=== PATIENT | female | born 1950 | race Two or more races ===

== ENCOUNTER 2024-08-15 15:50 | Emergency (ER) | payer OTHER ==
[~2024-08-15] VITALS: Ht 154.9 cm; Wt 49.0 kg
--- NOTE | 2024-08-15 17:32 | DVH ---
Procedure: CT CT AB PEL WO CON-NO ORAL OR IV 08/15/2024 04:55 PM Indication: Fall/trauma Comparison Study: None available at time of dictation. Technique: Axial images were obtained and reformatted in coronal and sagittal planes. All CT scans at this medical facility are performed using dose modulation techniques as appropriate t o a performed exam including the following: Automated exposure control was utilized; adjustment of th e MA and/or KV according to patient size; and use of iterative reconstruction technique. CT Dose: CTDI volume is 5.07 mGy. Dose-length product is 249.58 mGy*cm FINDINGS: Lower Chest: Severe multi chamber cardiomegaly. Artificial cardiac valve is noted. Calcification of the left atrial wall is seen. Bibasilar interstitial edema. Hepatobiliary: Gallbladder is surgically absent. Spleen: Unremarkable. Pancreas: Unremarkable. Adrenal Glands: Unremarkable. tract: The kidneys are normal in size bilaterally without hydronephrosis or nephrolithiasis. A 2 c m left renal cyst is seen. Parenchymal scarring in the lateral aspect of upper pole of the right kid osman The urinary bladder is unremarkable. GI tract: The stomach is grossly normal in appearance. No evidence of small bowel obstruction. Scatte red colonic diverticula are noted without evidence of diverticulitis. The appendix is not visualized . No inflammatory change is noted in the right lower quadrant. Lymphatics: No mesenteric, retroperitoneal or periportal lymphadenopathy. Vasculature: The abdominal aorta is normal in caliber. Diffuse calcified plaque formation is noted. Pelvic Organs: Unremarkable Bones/soft tissues: No acute abnormality. Other: None. IMPRESSION: 1. No CT evidence of acute hemorrhagic injury in the abdomen and pelvis. Hip joints and pelvic bones are intact.
--- NOTE | 2024-08-15 17:34 | DVH ---
EXAM: CT HEAD WITHOUT CONTRAST HISTORY: Fall/frontal head trauma COMPARISON: None TECHNIQUE: Axial images were obtained and reformatted in coronal and sagittal planes. All CT scans at this medical facility are performed using dose modulation techniques as appropriate t o a performed exam including the following: Automated exposure control was utilized; adjustment of th e MA and/or KV according to patient size; and use of iterative reconstruction technique. CT Dose: CTDI volume is 49.04 mGy. Dose-length product is 786.42 mGy*cm FINDINGS: Supratentorial Region: No evidence for large acute territorial ischemia. Old left insular cortex inf arcts. No intracranial hemorrhage is noted. Posterior Fossa: No acute abnormality. Brainstem: Unremarkable. Sellar/Suprasellar Region: Unremarkable. Ventricles, Cisterns, Sulci: Age-appropriate. Orbits: Unremarkable. Paranasal Sinuses: Small mucous retention cyst is seen in the right maxillary sinus. Mastoid Air Cells: Unremarkable. Vasculature: Unremarkable. Bones/Soft Tissues: No acute abnormality. Other: None. IMPRESSION: 1. No acute intracranial process.
[2024-08-15] MEDS ORDERED: ACET-1304 PO (18:42)
--- NOTE | 2024-08-15 18:43 | ED.PDOC ---
Vale. trauma (HPI) HPI Comments This patient is a 73-year-old female with advanced dementia who was non verbal who was brought to the ED by her daughter today status post fall at home. Daughter states that the patient was utilized in the restroom when she heard a crash and came in to find her mother wedged on the wall and the floor with a hematoma on her forehead. Daughter can not confirmed loss of consciousness. Daughter states that in route, patient was complaining of low back and abdominal pain. No blood loss. Vital signs were stable on arrival. Chief Complaint: Fall Injury Time Seen by MD: 16:36 Primary Care Provider: UNKNOWN Reviewed notes: Nurses Notes Information Source: Patient, Relative (Child) Mode of Arrival: Ambulatory Severity: Moderate Timing: Minutes Duration: Since onset Prehospital treatment: None Location: Abdominal, Back, Face Location of laceration: None Mechanism: Fall Past Medical History PAST MEDICAL HISTORY: Dementia Surgical History: Denies all surgeries ASSOCIATE History: No Pertinent ASSOCIATE History Family History Family History: Reviewed,noncontributory to illness, No family hx of Cancer, No family hx of DM, No family hx of Heart darin, No family hx of HTN, No family hx ofKidney darin, No family hx of Liver darin, No family hx of Lung darin, No family hx of Stroke Social History Smoker: Non-Smoker Alcohol: Denies ETOH Use Drugs: Denies Drug Use Lives In: Home Constitutional: denies: chills, diaphoresis, fatigue, fever, malaise, sweats, weakness, others EENTM: reports: others (Hematoma to forehead); denies: blurred vision, double vision, ear bleeding, ear discharge, ear drainage, ear pain, ear ringing, eye pain, eye redness, hearing loss, mouth pain, mouth swelling, nasal discharge, nose bleeding, nose congestion, nose pain, photophobia, tearing, throat pain, throat swelling, voice changes Respiratory: denies: cough, hemoptysis, orthopnea, SOB at rest, shortness of breath, SOB with excertion, stridor, wheezing, others Cardiovascular: denies: chest pain, dizzy spells, diaphoresis, Dyspnea on exertion, edema, irregular heart beat, left arm pain, lightheadedness, palpitations, PND, syncope, others Gastrointestinal: reports: abdominal pain; denies: abdomen distended, blood streaked bowels, constipated, diarrhea, dysphagia, difficulty swallowing, hematemesis, melena, nausea, poor appetite, poor fluid intake, rectal bleeding, rectal pain, vomiting, others Neurological: denies: dizziness, fainting, headache, left sided numbness, left sided weakness, numbness, paresthesia, pre-existing deficit, right sided numbness, right sided weakness, seizure, speech problems, tingling, tremors, weakness, others Musculoskeletal: reports: back pain; denies: gout, joint pain, joint swelling, muscle pain, muscle stiffness, neck pain, others Integumetry: denies: bruises, change in color, change in hair/nails, dryness, laceration, lesions, lumps, rash, wounds, others Allergic/Immunocompromised: denies: Difficulty Healing, Frequent Infections, Hives, Itching, others Hematologic/Lymphatic: denies: anemia, blood clots, easy bleeding, easy bruising, swollen glands, others Endocrine: denies: excessive hunger, excessive sweating, excessive thirst, excessive urination, flushing, intolerance to cold, intolerance to heat, unexplained weight gain, unexplained weight loss, others Psychiatric: denies: anxiety, bipolar disorder, depression, hopeless, panic disorder, schizophrenia, sleepless, suicidal, others Physical Exam General Appearance: Mild Distress (Patient appear to have some mild discomfort, but due to the nonverbal nature, unable to definitively assess.), Normal HEENT: Head (Patient displays a small walnut size resolving hematoma to the central forehead. No skull depressions or deformities.), Pharynx Normal, TMs Normal Neck: Full Range of Motion, Non-Tender, Normal, Normal Inspection, Other (Cervical spine evaluation was relatively unremarkable. No definitive signs of trauma.) Respiratory: Chest Non-Tender, Lungs Clear, No Accessory Muscle Use, No Respiratory Distress, Normal Breath Sounds Cardiovascular: No Edema, No JVD, No Murmur, No Gallop, Normal Peripheral Pulses, Regular Rate/Rhythm Breast Exam: Deferred Gastrointestinal: Other (Patient's seem to complain of diffuse right-sided abdominal pain that is nonspecific. No signs of trauma. No edema or ecchymosis.) Genitalia: Deferred Pelvic: Deferred Rectal: Deferred Extremities: No calf tenderness, Normal range of motion, Non-tender, Other (Bilateral upper and lower extremities were unremarkable and evaluation. No signs of trauma.) Musculoskeletal : Location: Bilateral Extremity Location: Back (Patient complains of diffuse tenderness to palpation that is nonspecific. No signs of definitive trauma. No step-offs noted.) Apperance: Normal Neurologic: Alert, No Motor Deficits Cerebellar Function: NOT DONE Reflexes: NOT DONE Skin: Dry, Normal Color, Warm Lymphatic: No Adenopathy Was a procedure done? Was a procedure done?: No Differential Diagnosis Multiple Trauma: Closed Head Injury, Other (Subarachnoid hemorrhage, subdural hematoma, skull fracture, intra-abdominal injury, pelvic fracture, lumbar fracture) X-Ray, Labs, Meds, VS Vital Signs Date Time Temp Pulse Resp B/P (MAP) Pulse Ox O2 Delivery O2 Flow Rate FiO2 08/15/24 16:39 98.7 94 16 111/62 (78) 92 X-Ray, Labs, Meds, VS Comment All studies performed the ED were evaluated by me personally. Imaging studies of the head and pelvis were unremarkable for any acute fractures, intracranial concerns, intraperitoneal concerns or bony concerns of the pelvis or back. Patient sustained a mild head trauma due to her event. Advised Tylenol as needed for pain relief. Patient should follow up with primary care provider in the next few days for re-evaluation. Time of 1ST Reevaluation: 18:40 Reevaluation 1ST: Unchanged Consultation: PCP Patient Education/Counseling: Diagnosis, Treatment Family Education/Counseling: Diagnosis, Treatment Departure 1 Departure Time of Disposition: 18:41 Impression: Primary Impression: Fall Additional Impression: Head trauma Disposition: HOME / SELF CARE / HOMELESS Condition: Stable Additional Instructions: Advised Tylenol as needed for pain relief as well as ice therapy as tolerated. Patient should follow up with the primary care provider in the next few days for re-evaluation. e-Prescriptions Acetaminophen (Tylenol Extra Strength) 500 Mg Tab 500 MG PO Q4HP PRN, #30 TAB Prov: KETTY WATERS PAC 08/15/24 Discharged With: Self, Relative Critical Care Note Critical Care Time?: No Stability Stability form required: No Heart Score Heart Score: Heart Score Response (Comments) Value History N/A 0 EKG N/A 0 Age N/A 0 Risk Factors N/A 0 Troponin N/A 0 Total 0 KETTY WATERS PAC Aug 15, 2024 18:43
[2024-08-15 19:29] VITALS: BP 124/69; PULSE 89; RESP 18; TEMP 98; O2SAT 97
== END 2024-08-15 19:42 | disposition home or self-care (01) ==
LOC: ER 15:57
DX: S00.83XA Contusion of other part of head, initial encounter (principal); W18.39XA Other fall on same level, initial encounter; Y93.89 Activity, other specified; Y92.89 Other specified places as the place of occurrence of the external cause; Y99.8 Other external cause status
CPT/HCPCS: 70450; 74176